=== PATIENT | female | born 1960 | race Caucasian/White ===

== ENCOUNTER 2017-04-05 13:41 | Emergency (ER) | payer OTHER ==
[2017-04-05 13:51] VITALS: BP 142/67
[2017-04-05] MEDS ORDERED: TETRACAINE HCL 150 DROP BTL ONE (13:55)
[2017-04-05] MEDS ORDERED: ERYTHROMYCIN BASE 3.5 APPL TUBE ONE (13:59)
[2017-04-05] MEDS ORDERED: ERYTHROMYCIN BASE 3.5 APPL TUBE RIGHTEYE ONE (14:01)
--- NOTE | 2017-04-05 14:03 | ERNOTE ---
ENT HPI Time Seen by Provider: 04/05/17 13:54 Source: patient Exam Limitations: no limitations - Immun/Allergies/Home Medications Immunizations: IMMUNIZATION HX Immunizations Up to Date Yes History of Influenza Vaccine Yes Hx Pneumococcal Vaccination Yes Allergies/Adverse Reactions: Allergies Allergy/AdvReac Type Severity Reaction Status Date / Time No Known Allergies Allergy Unverified 04/05/17 13:51 Home Medications: HOME MEDICATIONS Levothyroxine Sodium [Synthroid] 88 mcg PO DAILY 04/05/17 [Last Taken Unknown] Metoprolol Succinate [Toprol Xl] 100 mg PO DAILY 04/05/17 [Last Taken Unknown] Polymyxin B Sulf/Trimethoprim [Polytrim Ophthalmic Solution] 1 drop EACHEYE QID #10 ml 04/05/17 [Last Taken Unknown] - History of Present Illness Narrative: It was gardening prior to presentation to the emergency room and she got some dirt into her right eye and has been complaining of pain and burning in her right eye ever since. It feels gritty it feels as if something is in there. Review of Systems - Review of Systems Constitutional: Present: no symptoms reported EYE: Present: see HPI ENT: Present: no symptoms reported Respiratory: Present: no symptoms reported Cardiology: Present: no symptoms reported Gastrointestinal/Abdominal: Present: no symptoms reported Genitourinary: Present: no symptoms reported Musculoskeletal: Present: no symptoms reported - Patient's Past Medical History Patient History - Medical: Hypothyroidism Patient History - Cardiac/Respiratory: Hypertension Patient History - Cancer: No Hx of Cancer Patient History - Surgical Procedures: No surgical history Patient History - Other: None LMP (females 10-50): Menopausal - Social History Living Situations: home Abuse History: No History of abuse Psych History: No pertinent hx Smoking Status: Never smoker Alcohol Use: none Drug Use: none - Immunizations Immunizations Up to Date: Yes Hx Pneumococcal Vaccination: Yes History of Influenza Vaccine: Yes Physical Exam - Physical Exam General Appearance: Present: wd/wn, alert, no apparent distress Eye Exam: Normal inspection: right - there is redness of the conjunctiva of the right eye, using fluoroscopy seen tonight after the application of 2 drops of tetracaine it is noted that the patient does have a corneal abrasion at about the 10 o'clock position. Exam is normal, PERRL: bilateral, EOMI: bilateral Ears, Nose, Throat: Present: normal ENT inspection Neck: Present: normal inspection, nontender ED Progress - Vital Signs Patient's Vital Signs:: I have reviewed the patient's vital signs. Vital Signs: Vital Signs 04/05/17 13:46 Temperature 37.1 C Pulse Rate 70 Respiratory 14 Rate Blood Pressure 142/67 O2 Sat by Pulse 97 Oximetry - Progress/Reassessment Chief Complaint: Eye Injury/Trauma Plan - Plan Plan: Patient has a corneal abrasion she will be treated accordingly she is to follow- up with the primary care physician for follow-up Departure Clinical Impression: Injury of conjunctiva and corneal abrasion of right eye w/o FB Qualifiers: Encounter type: initial encounter Qualified Code(s): S05.01XA - Injury of conjunctiva and corneal abrasion without foreign body, right eye, initial encounter - Departure Disposition: Home self-care Condition: Good Instructions: Corneal Abrasion, [id number] Additional Instructions: You must follow up with her primary care doctor in 24-48 hours to reevaluate your corneal abrasion Referrals: Lillian Camarena MD [Primary Care Provider] - Prescriptions: Polymyxin B Sulf/Trimethoprim [Polytrim Ophthalmic Solution] 1 drop EACHEYE QID #10 ml
== END 2017-04-05 14:05 | disposition home or self-care (01) ==
LOC: ER 13:41
DX: S05.01XA Injury of conjunctiva and corneal abrasion without foreign body, right eye, initial encounter (principal); Y93.H2 Activity, gardening and landscaping; I10 Essential (primary) hypertension; E03.9 Hypothyroidism, unspecified